=== PATIENT | female | born 2000 | race Two or more races ===

== ENCOUNTER 2020-01-02 13:38 | Emergency (ER) | payer MEDICAID ==
[~2020-01-02] VITALS: Ht 165.1 cm; Wt 67.7 kg
[2020-01-02 14:36] LABS: BASOPHILS # (AUTO) 0.02 x10^3/uL (0-0.3); BASOPHILS % (AUTO) 0 % (0-1); EOSINOPHILS # (AUTO) 0.03 x10^3/uL (0-0.8); EOSINOPHILS % (AUTO) 0 % (1-7); LYMPHOCYTES # (AUTO) 0.97 x10^3/uL (1-6.1); LYMPHOCYTES % (AUTO) 13 % (22-44); MD NO; MEAN CORPUSCULAR HEMOGLOBIN 29.5 pg (27.0-34.8); MEAN CORPUSCULAR VOLUME 86.8 fL (80-100); MEAN PLATELET VOLUME 8.1 fL (7.4-10.4); MONOCYTES # (AUTO) 0.64 x10^3/uL (0-1.4); MONOCYTES % (AUTO) 9 % (2-9); NEUTROPHILS # (AUTO) 5.85 x10^3/uL (1.8-8.0); NEUTROPHILS % (AUTO) 78 % (42-75); PLATELET COUNT 242 x10^3/uL (130-400); RED BLOOD COUNT 5.05 x10^6/uL (3.82-5.3); RED CELL DISTRIBUTION WIDTH 13.6 % (9.6-15.2)
[2020-01-02 14:50] LABS: ANION GAP 8 mmol/L (5-15); CALCIUM 8.9 mg/dL (8.5-10.1); CHLORIDE 108 mmol/L (98-107)
[2020-01-02 14:57] LABS: ALANINE AMINOTRANSFERASE 19 U/L (12-78); BILIRUBIN,TOTAL 1.7 mg/dL (0.2-1.0); CREATININE 1.34 mg/dL (0.55-1.02); TOTAL PROTEIN 7.5 g/dL (6.4-8.2)
[2020-01-02 14:58] LABS: ALKALINE PHOSPHATASE 59 U/L (45-117)
[2020-01-02 15:38] VITALS: BP 129/89
[2020-01-02 17:08] LABS: MICROSCOPIC INDICATED
[2020-01-02 17:25] LABS: CULTURE INDICATED? YES
--- NOTE | 2020-01-02 18:48 | NUR ---
pt to room from lobby
[2020-01-02] MEDS ORDERED: ACETAMINOPHEN 325 MG TABLET PO ONE (19:00)
[2020-01-02] MEDS ORDERED: ONDANSETRON ODT 4 MG PO ONE (19:00)
[2020-01-02] MEDS ORDERED: ONDANSETRON ODT 4 MG ONE (19:39)
[2020-01-02] MEDS ORDERED: ACETAMINOPHEN 325 MG TABLET ONE (19:40)
--- NOTE | 2020-01-02 19:41 | NUR ---
PT NOT IN ROOM
[2020-01-02] MEDS ORDERED: DEPO-PROVERA (20:01)
--- NOTE | 2020-01-02 20:04 | NUR ---
C/O UPPER FLANK PAIN BILAT, SHARP PAINS, WORSEN W/ DEEP BREATHING, STARTED THURSDAY. DENIES RECENT URI, UTI SX TRUAMA. LMP: UNKNOWN (DEPO-PROVERA). LAST ORAL INTAKE: 1629 TODAY.
--- NOTE | 2020-01-02 20:08 | NUR ---
TYLENOL AND ZOFRAN GIVEN PER EMAR.
[2020-01-02] MEDS ORDERED: SULFAMETH./TRIMETHOPRIM DS 800MG/160MG TABLET PO ONE (21:00)
[2020-01-02] MEDS ORDERED: SULFAMETH./TRIMETHOPRIM DS 800MG/160MG TABLET ONE ×2 (21:15→21:31)
--- NOTE | 2020-01-02 21:20 | NUR ---
LYN RN;PT MEDICATED WITH [facility]PTRA AND DISCHARGED AT THIS TIME
== END 2020-01-02 21:22 | disposition home or self-care (01) ==
LOC: ED 14:58
DX: E86.0 Dehydration (principal); R80.9 Proteinuria, unspecified; R10.9 Unspecified abdominal pain; R11.2 Nausea with vomiting, unspecified; R19.7 Diarrhea, unspecified; R31.9 Hematuria, unspecified
CPT/HCPCS: 36415; 74176; 76770; 80053; 81001; 84703; 85025; 87086; 99285; Q0162